=== PATIENT | male | born 1995 | race Caucasian/White ===

== ENCOUNTER 2022-08-22 10:56 | Emergency (ER) | payer OTHER ==
[2022-08-22] MEDS ORDERED: Tetracaine HCl/PF 0.5% 4 ML Bottle EYELF ONE (11:27)
[2022-08-22] MEDS ORDERED: Ibuprofen 200 MG Tab PO ONE (11:43)
== END 2022-08-22 11:50 | disposition home or self-care (01) ==
LOC: KA.ED 10:56
DX: S05.02XA Injury of conjunctiva and corneal abrasion without foreign body, left eye, initial encounter (principal); X58.XXXA Exposure to other specified factors, initial encounter; Y92.69 Other specified industrial and construction area as the place of occurrence of the external cause
CPT/HCPCS: 99283; A9270-GY